=== PATIENT | female | born 1975 | race American Indian/Alaskan Native ===

== ENCOUNTER 2024-04-23 17:05 | Emergency (ER) | payer OTHER ==
[2024-04-23] MEDS ORDERED: hydrOXYzine HCl 50 MG/ML SDV IM ONE (17:53)
[2024-04-23] MEDS: buPROPion 150 MG Tab.SR PO ONE (18:10)
[2024-04-23] MEDS: hydrOXYzine Pamoate 25 MG Cap PO ONE (18:10)
== END 2024-04-23 18:40 ==
LOC: FB.ED 17:05
DX: Z02.89 Encounter for other administrative examinations (principal); F41.1 Generalized anxiety disorder; F43.10 Post-traumatic stress disorder, unspecified; F32.A Depression, unspecified; F15.10 Other stimulant abuse, uncomplicated; F17.210 Nicotine dependence, cigarettes, uncomplicated
CPT/HCPCS: 99283; A9270; 99284